=== PATIENT | male | born 1970 | race Caucasian/White ===

== ENCOUNTER 2018-06-18 12:35 | Inpatient (IN) ==
[2018-06-18] MEDS ORDERED: METOCLOPRAMIDE 10 MG/2 ML VIAL IV STA (13:22)
[2018-06-18] MEDS ORDERED: FAMOTIDINE 20 MG/2 ML VIAL IV STA (13:22)
[2018-06-18] MEDS ORDERED: CITRIC ACID/SODIUM CITRATE 30 ML UDCUP PO ONE (13:22)
[2018-06-18] MEDS ORDERED: KETAMINE 500 MG/10 ML VIAL ONE (14:30)
[2018-06-18] MEDS ORDERED: PROPOFOL 200 MG/20 ML VIAL IV ONE (14:30)
[2018-06-18] MEDS ORDERED: SODIUM CHLORIDE 0.9% 500 ML IV ONE (14:32)
[2018-06-18] MEDS ORDERED: ONDANSETRON 4 MG/2 ML VIAL IV PRN (18:00)
[2018-06-18] MEDS ORDERED: HYDROmorphone 2 MG/1 ML VIAL IV PRN (18:00)
[2018-06-18] MEDS ORDERED: diphenhydrAMINE CAP 25 MG CAPSULE PO PRN (18:04)
[2018-06-18] MEDS: SODIUM CHLORIDE 0.9% 1,000 ML IV SCH (19:05)
[2018-06-18 19:24] LABS: Basophils % 0.1 % (0.0-0.8); Hematocrit 39.9 VOL% (42.0-52.0); Hemoglobin 13.5 GM/DL (14.0-18.0); Immature Granulocytes % 0.3 %; Immature Granulocytes Absolute 0.03 #; Lymphocytes % 21.9 % (21.2-54.2); Mean Corpuscular HGB Conc 33.8 GM/DL (32-36); Mean Corpuscular Hemoglobin 32 PG (27-34); Mean Corpuscular Volume 94.8 FL (87-102); Mean Platelet Volume 10.1 FL (9.6-12.0); Monocytes # 0.4 10*3/uL (0.11-0.8); Monocytes % 4.6 % (1.7-12.7); Neutrophils # 6.6 10*3/uL (1.4-7.4); Neutrophils % 73.1 % (38.7-73.9); Platelet Count 132 T/CUMM (130-400); Red Blood Count 4.21 MC/CUMM (3.8-5.5); Red Cell Distribution Width 13.2 % (9.3-17.3)
[2018-06-18 19:38] LABS: PT Patient Result 10.4 SECS; Partial Thromboplastin Time 25.7 SECS (0-40)
[2018-06-18 19:52] LABS: Bilirubin,Total 0.5 MG/DL (0.2-1.0); Calcium 9.6 MG/DL (8.5-10.1); Osmolality,Calculated 287.1 MOS/KG (273-304); Potassium 3.9 MMOL/L (3.5-5.1); Total Protein 7.2 G/DL (6.4-8.3)
[2018-06-19] MEDS: SODIUM CHLORIDE 0.9% 1,000 ML IV SCH ×3 (04:24→23:24)
[2018-06-19] MEDS ORDERED: CLINDAMYCIN INJ 900 MG in PREMIX 1 EACH IV ONE (07:00)
[2018-06-19] MEDS ORDERED: BISACODYL 10 MG SUPP RECTAL PRN (08:15)
[2018-06-19] MEDS ORDERED: LACTULOSE 20 GM/30 ML UDCUP PO PRN (08:15)
[2018-06-19] MEDS ORDERED: PROMETHAZINE 25 MG/1 ML VIAL IM PRN (08:15)
[2018-06-19] MEDS ORDERED: ROPIVACAINE 0.5% 30 ML VIAL ONE (08:25)
[2018-06-19] MEDS ORDERED: fentaNYL 100 MCG/2 ML VIAL ONE (08:26)
[2018-06-19] MEDS ORDERED: MIDAZOLAM 2 MG/2 ML VIAL ONE (08:26)
[2018-06-19] MEDS ORDERED: HALOPERIDOL DECANOATE 100 MG IJ SCH (08:30)
[2018-06-19] MEDS ORDERED: POLYETHYLENE GLYCOL POWDER 255 GM BOTTLE PO SCH (09:00)
[2018-06-19] MEDS: LUBIPROSTONE 24 MCG CAPSULE PO SCH (10:15)
[2018-06-19] MEDS: AZELASTINE HCL BOTH EYES SCH ×2 (10:15→20:14)
[2018-06-19] MEDS: POLYETHYLENE GLYCOL POWDER 17 GM PACK PO SCH (10:15)
[2018-06-19] MEDS: ATENOLOL 25 MG TABLET PO SCH (10:16)
[2018-06-19] MEDS: LATANOPROST 0.005% OPH SOLN 2.5 ML BOTTLE BOTH EYES SCH ×2 (10:16→20:14)
[2018-06-19] MEDS: NAPROXEN 500 MG TABLET PO SCH ×2 (10:16→20:14)
[2018-06-19] MEDS ORDERED: PROPOFOL 200 MG/20 ML VIAL IV ONE (10:53)
[2018-06-19] MEDS ORDERED: GLYCOPYRROLATE 0.4 MG/2 ML VIAL ONE (10:54)
[2018-06-19] MEDS ORDERED: ETOMIDATE 40 MG/20 ML VIAL IV ONE (10:54)
[2018-06-19] MEDS ORDERED: DEXAMETHASONE 10 MG/1 ML VIAL ONE (10:54)
[2018-06-19] MEDS ORDERED: ONDANSETRON 4 MG/2 ML VIAL ONE ×2 (10:54→11:19)
[2018-06-19] MEDS ORDERED: KETOROLAC 30 MG/1 ML VIAL ONE (10:54)
[2018-06-19] MEDS ORDERED: PHENYLEPHRINE 10 MG/1 ML VIAL IV ONE (10:54)
[2018-06-19] MEDS ORDERED: SEVOFLURANE 1 UNIT/15 MINUTE INH ONE (10:54)
[2018-06-19] MEDS ORDERED: SODIUM CHLORIDE 0.9% 250 ML IV ONE (10:55)
[2018-06-19] MEDS ORDERED: LACTATED RINGERS 1,000 ML IV ONE (10:55)
[2018-06-19] MEDS ORDERED: ROCURONIUM 100 MG/10 ML VIAL IV ONE (10:55)
[2018-06-19] MEDS ORDERED: ACETAMINOPHEN 1,000 MG/100 ML VIAL IV ONE (10:55)
[2018-06-19] MEDS ORDERED: NEOSTIGMINE 10 MG/10 ML VIAL ONE (10:55)
[2018-06-19] MEDS ORDERED: HYDROmorphone 2 MG/1 ML VIAL ONE (11:19)
[2018-06-19] MEDS ORDERED: HYDROmorphone 2 MG/1 ML VIAL IV PRN (11:22)
[2018-06-19] MEDS ORDERED: ONDANSETRON 4 MG/2 ML VIAL IV PRN (11:22)
[2018-06-19] MEDS: CLINDAMYCIN INJ 900 MG in PREMIX 1 EACH IV SCH ×2 (14:18→23:30)
[2018-06-19] MEDS ORDERED: CLOZAPINE 400 MG PO SCH ×2 (18:00→21:00)
[2018-06-19] MEDS: CLOZAPINE 400 MG PO SCH (20:13)
[2018-06-19] MEDS: TOLTERODINE LA 4 MG CAPSULE PO SCH (20:13)
[2018-06-19] MEDS: MONTELUKAST 10 MG TABLET PO SCH (20:14)
[2018-06-19] MEDS: ROSUVASTATIN 10 MG TABLET PO SCH (20:14)
[2018-06-20] MEDS: CLINDAMYCIN INJ 900 MG in PREMIX 1 EACH IV SCH (06:18)
[2018-06-20] MEDS: AZELASTINE HCL BOTH EYES SCH ×2 (09:20→21:42)
[2018-06-20] MEDS: NAPROXEN 500 MG TABLET PO SCH ×2 (09:20→21:44)
[2018-06-20] MEDS: ATENOLOL 25 MG TABLET PO SCH (09:20)
[2018-06-20] MEDS: LUBIPROSTONE 24 MCG CAPSULE PO SCH (09:20)
[2018-06-20] MEDS: POLYETHYLENE GLYCOL POWDER 17 GM PACK PO SCH (09:21)
[2018-06-20] MEDS: LATANOPROST 0.005% OPH SOLN 2.5 ML BOTTLE BOTH EYES SCH ×2 (09:28→22:55)
[2018-06-20] MEDS: CLOZAPINE 400 MG PO SCH (21:43)
[2018-06-20] MEDS: TOLTERODINE LA 4 MG CAPSULE PO SCH (21:44)
[2018-06-20] MEDS: ROSUVASTATIN 10 MG TABLET PO SCH (21:46)
[2018-06-20] MEDS: MONTELUKAST 10 MG TABLET PO SCH (21:46)
[2018-06-21] MEDS: AZELASTINE HCL BOTH EYES SCH ×2 (10:17→20:48)
[2018-06-21] MEDS: LUBIPROSTONE 24 MCG CAPSULE PO SCH (10:17)
[2018-06-21] MEDS: NAPROXEN 500 MG TABLET PO SCH ×2 (10:17→20:43)
[2018-06-21] MEDS: ATENOLOL 25 MG TABLET PO SCH (10:17)
[2018-06-21] MEDS: POLYETHYLENE GLYCOL POWDER 17 GM PACK PO SCH (10:18)
[2018-06-21] MEDS: LATANOPROST 0.005% OPH SOLN 2.5 ML BOTTLE BOTH EYES SCH ×2 (10:18→20:51)
[2018-06-21] MEDS: TOLTERODINE LA 4 MG CAPSULE PO SCH (20:43)
[2018-06-21] MEDS: ROSUVASTATIN 10 MG TABLET PO SCH (20:43)
[2018-06-21] MEDS: MAGNESIUM HYDROXIDE SUSP 30 ML UDCUP PO PRN (20:43)
[2018-06-21] MEDS: MONTELUKAST 10 MG TABLET PO SCH (20:43)
[2018-06-21] MEDS: CLOZAPINE 400 MG PO SCH (20:45)
[2018-06-22] MEDS: MAGNESIUM HYDROXIDE SUSP 30 ML UDCUP PO PRN (05:24)
[2018-06-22] MEDS ORDERED: fentaNYL 100 MCG/2 ML VIAL ONE (08:44)
[2018-06-22] MEDS ORDERED: MIDAZOLAM 2 MG/2 ML VIAL ONE (08:44)
[2018-06-22] MEDS ORDERED: hydrALAZINE 20 MG/1 ML VIAL ONE (08:54)
[2018-06-22] MEDS: POLYETHYLENE GLYCOL POWDER 17 GM PACK PO SCH (09:11)
[2018-06-22] MEDS: LATANOPROST 0.005% OPH SOLN 2.5 ML BOTTLE BOTH EYES SCH (09:11)
[2018-06-22] MEDS: ATENOLOL 25 MG TABLET PO SCH (09:12)
[2018-06-22] MEDS: NAPROXEN 500 MG TABLET PO SCH (09:12)
[2018-06-22] MEDS: LUBIPROSTONE 24 MCG CAPSULE PO SCH (09:12)
[2018-06-22] MEDS: AZELASTINE HCL BOTH EYES SCH (09:13)
[2018-06-22 10:20] VITALS: BP 140/78
[2018-06-22] MEDS ORDERED: TUBERCULIN SKIN TEST 0.1 ML SYRINGE INTRADERM ONE (12:41)
== END 2018-06-22 13:55 | DRG 493 ==
LOC: N.ED 12:35 → N.EDINP 15:41 → N.3E 16:19
PROVIDERS: ADMIT Orthopaedic Surgery; ATTEND Orthopaedic Surgery